=== PATIENT | female | born 1985 | race Two or more races ===

== ENCOUNTER 2016-12-02 10:28 | Inpatient (IN) | payer MEDICAID ==
[~2016-12-02] VITALS: Ht 165.1 cm; Wt 76.7 kg
[2016-12-02 11:23] LABS: BASOPHIL % 0.4 % (0-2); PLATELET COUNT 303 x10^3mcL (130-400)
[2016-12-02 11:24] LABS: RED CELL DISTRIBUTION WIDTH 15.4 % (11.5-14.5)
[2016-12-02 11:29] LABS: CALCIUM 8.6 mg/dL (8.5-10.1); CARBON DIOXIDE 27.8 mmol/L (21-32); CHLORIDE SERUM 105 mmol/L (98-107); CREATININE SERUM 0.6 mg/dL (0.6-1.0); GFR1 > 60 mL/min; GLUCOSE SERUM 106 mg/dL (74-106); POTASSIUM SERUM 3.9 mmol/L (3.5-5.1); SODIUM SERUM 138 mmol/L (136-145)
[2016-12-02 11:34] LABS: ALBUMIN 3.5 g/dL (3.4-5.0); ALKALINE PHOSPHATASE 71 U/L (46-116); ALT/SGPT 19 U/L (14-59); AST/SGOT 19 U/L (15-37); BILIRUBIN TOTAL 1.03 mg/dL (0.20-1.00); CHOLESTEROL 129 mg/dL (<200); CHOLESTEROL/HDL RATIO 1.9; HDL CHOLESTEROL 68 mg/dL (40-60); LIPASE 75 IU/L (73-393); TOTAL PROTEIN, SERUM 7.4 g/dL (6.4-8.2); TRIGLYCERIDES 39 mg/dL (<150)
[2016-12-02 11:41] LABS: FREE T4 1.12 ng/dL (0.76-1.46); FREE THYROXINE INDEX 2.9 ug/dL (1.4-4.5); T4(THYROXINE) 8.4 ug/dL (4.7-13.3)
[2016-12-02 11:49] LABS: T3 TOTAL 0.89 ng/mL
[2016-12-02] MEDS ORDERED: PROAIR RES117 MCG/Ac IH (12:14)
[2016-12-02 13:33] LABS: MAGNESIUM 2.1 mg/dL (1.8-2.4); PHOSPHOROUS 3.4 mg/dL (2.5-4.9)
[2016-12-02 14:12] VITALS: BP 118/80
[2016-12-02 14:15] VITALS: BP 118/80
[2016-12-02 14:19] VITALS: Ht 165.1 cm; Wt 76.7 kg
[2016-12-02 16:24] VITALS: BP 130/77
[2016-12-02 16:26] VITALS: BP 98/54
[2016-12-02 17:06] LABS: UA SPECIFIC GRAVITY 1.015 (1.005-1.035); microscopic required? YES; urine erythrocyte 3+ (NEGATIVE)
[2016-12-02 17:15] LABS: AMPHETAMINE QUAL UR NONE DETECTED (NEG <=1000)
[2016-12-02 18:06] VITALS: BP 118/80
[2016-12-02 21:54] VITALS: BP 126/76
[2016-12-03 05:54] VITALS: BP 117/77
[2016-12-03 06:27] LABS: BASOPHIL % 0.1 % (0-2); PLATELET COUNT 313 x10^3mcL (130-400)
[2016-12-03 06:41] LABS: CALCIUM 8.7 mg/dL (8.5-10.1); CARBON DIOXIDE 23.1 mmol/L (21-32); CHLORIDE SERUM 108 mmol/L (98-107); CREATININE SERUM 0.5 mg/dL (0.6-1.0); GFR1 > 60 mL/min; GLUCOSE SERUM 125 mg/dL (74-106); POTASSIUM SERUM 4.3 mmol/L (3.5-5.1); SODIUM SERUM 140 mmol/L (136-145)
[2016-12-03 09:39] VITALS: BP 143/77
[2016-12-03 14:46] VITALS: BP 117/78
[2016-12-03 17:02] VITALS: BP 129/81
[2016-12-03 21:34] VITALS: BP 114/71
[2016-12-04 06:06] VITALS: BP 121/94
[2016-12-04 06:47] LABS: CALCIUM 8.8 mg/dL (8.5-10.1); CARBON DIOXIDE 25.4 mmol/L (21-32); CHLORIDE SERUM 107 mmol/L (98-107); CREATININE SERUM 0.5 mg/dL (0.6-1.0); GFR1 > 60 mL/min; GLUCOSE SERUM 126 mg/dL (74-106); MAGNESIUM 2.1 mg/dL (1.8-2.4); PHOSPHOROUS 4.2 mg/dL (2.5-4.9); POTASSIUM SERUM 4.3 mmol/L (3.5-5.1); SODIUM SERUM 139 mmol/L (136-145)
[2016-12-04 06:48] LABS: PLATELET COUNT 323 x10^3mcL (130-400)
[2016-12-04 06:51] LABS: BASOPHIL % 0 % (0-2); RED CELL DISTRIBUTION WIDTH 16.1 % (11.5-14.5)
[2016-12-04 08:41] VITALS: BP 136/83
[2016-12-04 17:32] VITALS: BP 115/79
[2016-12-04 21:56] VITALS: BP 131/84
[2016-12-05 06:15] VITALS: BP 124/86
[2016-12-05 06:49] LABS: BASOPHIL % 0.2 % (0-2); PLATELET COUNT 344 x10^3mcL (130-400)
[2016-12-05 06:50] LABS: RED CELL DISTRIBUTION WIDTH 16.5 % (11.5-14.5)
[2016-12-05 07:15] LABS: CALCIUM 8.6 mg/dL (8.5-10.1); CARBON DIOXIDE 25.6 mmol/L (21-32); CHLORIDE SERUM 107 mmol/L (98-107); CREATININE SERUM 0.5 mg/dL (0.6-1.0); GFR1 > 60 mL/min; GLUCOSE SERUM 111 mg/dL (74-106); POTASSIUM SERUM 4.1 mmol/L (3.5-5.1); SODIUM SERUM 141 mmol/L (136-145)
[2016-12-05] MEDS ORDERED: MONTELUKAST SOD10 M1 PO (08:59)
[2016-12-05] MEDS ORDERED: FLUNISOLID0.025 MG/A (09:01)
[2016-12-05] MEDS ORDERED: MEDDP PO (09:02)
[2016-12-05] MEDS ORDERED: PROAIR RES117 MCG/Ac IH (09:11)
[2016-12-05] MEDS ORDERED: PULMICORT0.5 MG/2 M IH (09:11)
[2016-12-05 09:55] VITALS: BP 126/82
[2016-12-05 11:05] VITALS: BP 126/82
== END 2016-12-05 11:50 | disposition home or self-care (01) | DRG 141 ==
LOC: ED 10:28 → DU 12:32 → MU 12-04 06:53
PROVIDERS: Specialist; ADMIT Family Medicine
DX: J45.901 Unspecified asthma with (acute) exacerbation (principal); J96.00 Acute respiratory failure, unspecified whether with hypoxia or hypercapnia; E05.90 Thyrotoxicosis, unspecified without thyrotoxic crisis or storm; R73.03 Prediabetes; E80.6 Other disorders of bilirubin metabolism; R31.9 Hematuria, unspecified; E03.9 Hypothyroidism, unspecified; E66.3 Overweight; Z68.28 Body mass index [BMI] 28.0-28.9, adult
CPT/HCPCS: 82962; 83880; 84439; 94150; J0171; J2920; J2930; J3475; J7030; J7040; J7613; J7620; J7626; J7644; Q0092

== ENCOUNTER 2018-04-26 23:31 | Inpatient (IN) | payer OTHER ==
[~2018-04-26] VITALS: Ht 165.1 cm; Wt 73.0 kg
[~2018-04-26 23:31] MED LIST: FLUNISOLID0.025 MG/A; MEDDP PO; MONTELUKAST SOD10 M1 PO; PROAIR RES117 MCG/Ac IH; PULMICORT0.5 MG/2 M IH
[2018-04-26 23:36] VITALS: Ht 165.1 cm; Wt 73.0 kg
[2018-04-27 01:18] LABS: BASOPHIL % 0.8 % (0-2)
[2018-04-27 01:19] LABS: PLATELET COUNT 428 x10^3mcL (130-400); RED CELL DISTRIBUTION WIDTH 17.3 % (11.5-14.5)
[2018-04-27 01:30] LABS: ALBUMIN 3.7 g/dL (3.4-5.0); ALKALINE PHOSPHATASE 83 U/L (46-116); ALT/SGPT 22 U/L (14-59); AST/SGOT 20 U/L (15-37); BILIRUBIN TOTAL 0.4 mg/dL (0.20-1.00); CALCIUM 8.7 mg/dL (8.5-10.1); CARBON DIOXIDE 24.6 mmol/L (21-32); CHLORIDE SERUM 101 mmol/L (98-107); CREATININE SERUM 0.6 mg/dL (0.6-1.0); GFR1 > 60 mL/min; GLUCOSE SERUM 129 mg/dL (74-106); POTASSIUM SERUM 3.1 mmol/L (3.5-5.1); SODIUM SERUM 137 mmol/L (136-145); TOTAL PROTEIN, SERUM 7.8 g/dL (6.4-8.2)
[2018-04-27 02:39] LABS: PHOSPHOROUS 3.2 mg/dL (2.5-4.9)
[2018-04-27 03:05] VITALS: BP 136/84
[2018-04-27 05:16] LABS: BASOPHIL % 0 % (0-2); PLATELET COUNT 411 x10^3mcL (130-400); RED CELL DISTRIBUTION WIDTH 16.9 % (11.5-14.5)
[2018-04-27 05:33] LABS: CALCIUM 8.8 mg/dL (8.5-10.1); CARBON DIOXIDE 22.7 mmol/L (21-32); CHLORIDE SERUM 103 mmol/L (98-107); CREATININE SERUM 0.6 mg/dL (0.6-1.0); GFR1 > 60 mL/min; GLUCOSE SERUM 156 mg/dL (74-106); POTASSIUM SERUM 4.6 mmol/L (3.5-5.1); SODIUM SERUM 137 mmol/L (136-145)
[2018-04-27 11:15] VITALS: BP 118/79
[2018-04-27 13:57] VITALS: BP 118/79
[2018-04-27 14:25] VITALS: BP 126/83
[2018-04-27 17:00] VITALS: BP 125/82
[2018-04-27 21:10] VITALS: BP 134/85
[2018-04-28 00:17] LABS: microscopic required? YES; urine erythrocyte 3+ (NEGATIVE)
[2018-04-28 00:22] LABS: AMPHETAMINE QUAL UR POSITIVE (See below)
[2018-04-28 05:14] VITALS: BP 114/73
[2018-04-28 06:26] LABS: BASOPHIL % 0 % (0-2); PLATELET COUNT 422 x10^3mcL (130-400); RED CELL DISTRIBUTION WIDTH 17.2 % (11.5-14.5)
[2018-04-28 06:34] LABS: CARBON DIOXIDE 23.3 mmol/L (21-32); CHLORIDE SERUM 102 mmol/L (98-107); CREATININE SERUM 0.6 mg/dL (0.6-1.0); GFR1 > 60 mL/min; GLUCOSE SERUM 168 mg/dL (74-106); MAGNESIUM 2.3 mg/dL (1.8-2.4); PHOSPHOROUS 3.3 mg/dL (2.5-4.9); POTASSIUM SERUM 4.5 mmol/L (3.5-5.1); SODIUM SERUM 135 mmol/L (136-145)
[2018-04-28 08:43] VITALS: BP 133/82
[2018-04-28 12:40] VITALS: BP 117/73
[2018-04-28 16:41] VITALS: BP 115/72
[2018-04-28 21:24] VITALS: BP 115/69
[2018-04-29 05:17] VITALS: BP 119/76
[2018-04-29 05:18] VITALS: BP 116/79
[2018-04-29 06:52] LABS: BASOPHIL % 0 % (0-2); CARBON DIOXIDE 25.6 mmol/L (21-32); CHLORIDE SERUM 103 mmol/L (98-107); CREATININE SERUM 0.6 mg/dL (0.6-1.0); GFR1 > 60 mL/min; GLUCOSE SERUM 145 mg/dL (74-106); MAGNESIUM 2.2 mg/dL (1.8-2.4); PLATELET COUNT 451 x10^3mcL (130-400); POTASSIUM SERUM 4.3 mmol/L (3.5-5.1); RED CELL DISTRIBUTION WIDTH 17.3 % (11.5-14.5); SODIUM SERUM 140 mmol/L (136-145)
[2018-04-29 12:36] VITALS: BP 115/73
[2018-04-29 17:11] VITALS: BP 132/91
[2018-04-29 20:39] VITALS: BP 120/80
[2018-04-30 05:05] VITALS: BP 121/76
[2018-04-30 07:19] LABS: BASOPHIL % 0.1 % (0-2)
[2018-04-30 07:39] LABS: PLATELET COUNT 431 x10^3mcL (130-400); RED CELL DISTRIBUTION WIDTH 17.6 % (11.5-14.5)
[2018-04-30 07:46] LABS: CALCIUM 8.6 mg/dL (8.5-10.1); CARBON DIOXIDE 27.6 mmol/L (21-32); CHLORIDE SERUM 104 mmol/L (98-107); CREATININE SERUM 0.5 mg/dL (0.6-1.0); GFR1 > 60 mL/min; GLUCOSE SERUM 149 mg/dL (74-106); POTASSIUM SERUM 4.4 mmol/L (3.5-5.1); SODIUM SERUM 140 mmol/L (136-145)
[2018-04-30] MEDS ORDERED: LEVAQUIN750 MG PO (08:33)
[2018-04-30 09:19] VITALS: BP 121/76
[2018-04-30 09:54] VITALS: BP 129/86
[2018-04-30 13:18] VITALS: BP 128/92
== END 2018-04-30 13:45 | disposition home or self-care (01) | DRG 720 ==
LOC: ED 23:31 → DU 04-27 01:08
PROVIDERS: Emergency Medicine; General Practice; ADMIT Internal Medicine
DX: A41.9 Sepsis, unspecified organism (principal); J96.01 Acute respiratory failure with hypoxia; J45.902 Unspecified asthma with status asthmaticus; E87.1 Hypo-osmolality and hyponatremia; J20.9 Acute bronchitis, unspecified; E87.6 Hypokalemia; F17.210 Nicotine dependence, cigarettes, uncomplicated; B37.0 Candidal stomatitis; Z91.011 Allergy to milk products
CPT/HCPCS: 36600; 83880; 94150; J1956; J2920; J2930; J3475; J7030; J7613; J7620; J7633; Q0092

== ENCOUNTER 2020-02-14 14:25 | Emergency (ER) | payer OTHER ==
[~2020-02-14] VITALS: Ht 162.6 cm; Wt 82.6 kg
[~2020-02-14 14:25] MED LIST changes: +LEVAQUIN750 MG PO
[2020-02-14 14:33] VITALS: Ht 162.6 cm; Wt 82.6 kg
[2020-02-14 17:31] VITALS: BP 115/67
== END 2020-02-14 17:31 | disposition home or self-care (01) ==
LOC: ED 14:25
DX: O99.512 Diseases of the respiratory system complicating pregnancy, second trimester (principal); J45.901 Unspecified asthma with (acute) exacerbation; Z20.828 Contact with and (suspected) exposure to other viral communicable diseases; Z91.011 Allergy to milk products
CPT/HCPCS: J2930; J7030; J7613